=== PATIENT | male | born 1995 | race Two or more races ===

== ENCOUNTER 2017-03-28 17:53 | Emergency (ER) | payer OTHER ==
[~2017-03-28] VITALS: Ht 167.6 cm; Wt 72.6 kg
[2017-03-28 17:59] VITALS: BP 133/84
[2017-03-28] MEDS ORDERED: Bacitracin Oint UD TOPIC ONE (19:45)
[2017-03-28] MEDS ORDERED: IBUPROFEN600 MG ORAL (21:04)
[2017-03-28] MEDS ORDERED: ROBAXIN-750750 MG PO (21:04)
[2017-03-28 21:23] VITALS: BP 109/70
--- NOTE | 2017-03-29 12:59 | Diagnostic Imaging Report ---
Indication: PAIN Technique: One view of the chest Comparison: none Findings: Lungs and pleural spaces are clear. Heart size is normal Impression: No acute process
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
== END 2017-03-28 21:31 | disposition home or self-care (01) ==
LOC: EDBD 17:53 → EMR 19:00
DX: S29.011A Strain of muscle and tendon of front wall of thorax, initial encounter (principal); S50.812A Abrasion of left forearm, initial encounter; M25.562 Pain in left knee; V49.40XA Driver injured in collision with unspecified motor vehicles in traffic accident, initial encounter; Y92.410 Unspecified street and highway as the place of occurrence of the external cause; Z91.013 Allergy to seafood
CPT/HCPCS: 71010; 99284